=== PATIENT | female | born 1990 | race Caucasian/White ===

== ENCOUNTER 2020-03-22 10:55 | Outpatient (CLI) | payer BC, OTHER ==
[2020-03-23 15:22] LABS: SARS-CoV-2 MS2 Positive; SARS-CoV-2 N Gene Negative; SARS-CoV-2 S Gene Negative; SARS-CoV-2 by NAA Not Detected (NotDetected); SARS-CoV-2 orf1ab Negative
== END 2020-03-22 10:56 | disposition home or self-care (01) ==
LOC: LABBT 10:55
PROVIDERS: ATTEND Obstetrics & Gynecology
DX: Z20.828 Contact with and (suspected) exposure to other viral communicable diseases (principal)
CPT/HCPCS: 87635; U0003

== ENCOUNTER 2020-03-25 05:34 | Inpatient (IN) | payer BC, OTHER ==
[2020-03-25] MEDS ORDERED: Promethazine HCl 25 MG/ML VIAL IM PRN ×2 (05:38→08:32)
[2020-03-25] MEDS ORDERED: hydrALAZINE 20 MG/ML VIAL SLOW IVP PRN ×2 (05:38→08:36)
[2020-03-25] MEDS ORDERED: Lactated Ringer's 1,000 ML IV SCH (05:38)
[2020-03-25] MEDS ORDERED: Bicitra 30 ML UDCUP PO SCH (05:38)
[2020-03-25] MEDS ORDERED: Ondansetron PF 4 MG/2 ML Vial IVP PRN ×3 (05:38→08:36)
[2020-03-25] MEDS ORDERED: CEFAZOLIN 2 GM in Premix Bag 1 BAG IVPB SCH (05:38)
[2020-03-25 06:05] VITALS: BMI 32.8
[2020-03-25 06:25] LABS: Hemoglobin 13.8 g/dL (12.0-16.0); Mean Corpuscular HGB CONC 34.1 g/dL (32.0-36.0); Mean Corpuscular Volume 93.7 fL (78.0-98.0); Mean Platelet Volume 9.6 fL (7.4-10.4); Platelet Count 121 thou/uL (130-400); RBC Distribution Width 12.4 % (11.5-14.5); Red Blood Cell (RBC) Count 4.32 mill/uL (4.20-5.40); White Blood Cell (WBC) Count 8.4 thou/uL (4.8-10.8)
[2020-03-25 07:05] LABS: HBSAg Index 0.16 S/CO (0-0.99); Hep B Surf Ag Non-Reactive S/CO (NonReactive)
[2020-03-25 07:06] LABS: Syphilis Antibody Nonreactive (Nonreactive); Syphilis Antibody Index 0.03 S/CO (<1.00 Non-Reactive)
[2020-03-25] MEDS ORDERED: Ketorolac Tromethamine 30 MG/ML VIAL ONE (07:12)
[2020-03-25] MEDS ORDERED: Ondansetron PF 4 MG/2 ML Vial ONE (07:12)
[2020-03-25] MEDS ORDERED: PHENYLEPHRINE-NS 100 MCG/ML 10 ML SYRINGE ONE (07:12)
[2020-03-25] MEDS ORDERED: Oxytocin 10 UNITS/ML VIAL ONE ×2 (07:12→08:50)
[2020-03-25] MEDS ORDERED: ePHEDrine 50 MG/ML VIAL ONE (07:12)
[2020-03-25] MEDS ORDERED: Naloxone HCl 0.4 mg/ml Vial IVP PRN ×2 (08:32)
[2020-03-25] MEDS ORDERED: Promethazine HCl 25 MG SUPP PR PRN (08:32)
[2020-03-25] MEDS ORDERED: Meperidine HCl/PF 25 MG/ML VIAL SLOW IVP PRN (08:32)
[2020-03-25] MEDS ORDERED: Naloxone HCl 0.4 mg/ml Vial IV PRN (08:32)
[2020-03-25] MEDS ORDERED: diphenhydrAMINE 50 MG/ML VIAL IVP PRN (08:32)
[2020-03-25] MEDS ORDERED: Ondansetron HCl/PF 4 MG/2 ML Vial IVP PRN (08:32)
[2020-03-25] MEDS ORDERED: Ketorolac Tromethamine 30 MG/ML VIAL IVP PRN (08:32)
[2020-03-25] MEDS ORDERED: Bisacodyl 10 MG SUPP PR PRN (08:36)
[2020-03-25] MEDS ORDERED: Acetaminophen 325 MG TAB PO PRN (08:36)
[2020-03-25] MEDS ORDERED: Misoprostol 200 MCG TAB PR PRN (08:36)
[2020-03-25] MEDS ORDERED: diphenhydrAMINE 25 MG CAP PO PRN (08:36)
[2020-03-25] MEDS ORDERED: Meperidine HCl/PF 25 MG/ML VIAL IM PRN (08:36)
[2020-03-25] MEDS ORDERED: Zolpidem Tartrate 5 MG TAB PO PRN (08:36)
[2020-03-25] MEDS ORDERED: Lanolin Ointment 7 GM TUBE TOP PRN (08:36)
[2020-03-25] MEDS ORDERED: Adacel (T-DAP) 0.5 ML SYRINGE IM ONE (08:36)
[2020-03-25] MEDS ORDERED: Communication Order-Pharmacy FS SCH (08:45)
[2020-03-25] MEDS ORDERED: NS / Oxytocin 40 units/1000ml 1,000 ML IV SCH (08:45)
[2020-03-25] MEDS ORDERED: Ketorolac Tromethamine 30 MG/ML VIAL IVP SCH (08:45)
--- NOTE | 2020-03-25 10:20 | OP ---
DATE OF PROCEDURE: 03/25/2020 Surgeon: Tasha Murphy MD RESIDENT SURGEON: Brody PREOPERATIVE DIAGNOSES: 1. Term intrauterine at 39 and 4/7th weeks. 2. Prior section. 3. Declines trial of labor. POSTOPERATIVE DIAGNOSES: 1. Term intrauterine at 39 and 4/7th weeks. 2. Prior section. 3. Declines trial of labor. PROCEDURE PERFORMED: Repeat low-transverse section. ANESTHESIA: Spinal catheterization. FINDINGS: 1. Minimal scarring and adhesions. 2. Vigorous female , 6 pounds 7 ounces, Apgars 9 and 9. 3. Normal uterus, tubes, and ovaries. COMPLICATIONS: None. SPECIMENS REMOVED: Cord blood. ESTIMATED BLOOD LOSS: Approximately 500 mL. QBL 580 mL. DESCRIPTION OF PROCEDURE: After thorough consent and counseling, Mrs. Bee was taken to the operating room and an adequate level of anesthesia was obtained via spinal catheterization. The patient was prepped and draped in usual sterile fashion for abdominal surgery. A Quiroga was placed in the bladder, which was drained of clear urine. Team time-out was performed. Attention was then turned to performing the repeat low-transverse section. A Pfannenstiel incision was made through the old scar, which was carried sharply to the fascia. The fascia was sharply incised and the midline was identified. The rectus muscles were retracted laterally with usual safeguards carried out. The abdominal peritoneal cavity was entered in the midline. A retractor was placed and a bladder flap was created on the vesicouterine peritoneum. A bladder blade was then placed. A low-transverse incision was made on the well-developed lower uterine segment. Upon entering the amniotic sac, copious amount of clear amniotic fluid was visualized. The was noted to be vertex presentation in the occiput and anterior position still high in the pelvis. Head was delivered and the baby was bulb suctioned on the abdomen. Shoulders and body were then delivered in an atraumatic fashion. The cord was doubly clamped and cut. The infant was handed to the Pediatric Team in attendance for delivery. The was a vigorous viable female weighing 6 pounds 7 ounces with Apgars of 9 and 9 obtained at one and five minutes respectively. Cord blood was obtained. The placenta was manually removed from the uterus. The uterus was exteriorized and good tone was noted. The uterine cavity was cleared of any remaining clot and fluid. The low-transverse incision was then closed with a running locking ligature of #1 chromic. The bladder flap was created. Fluid was reapproximated to the lower uterus segment with running ligature of 2-0 Monocryl. Good tone and hemostasis were appreciated. The posterior cul-de-sac and gutters were cleared of clot and fluid. Seprafilm was applied to the low-transverse incision and the anterior aspect of the uterus for adhesion prevention. The uterus was returned to the abdomen and good tone and hemostasis was again noted. Lap, sponge, and needle counts were correct. The peritoneum was then closed with a running ligature of 2-0 Vicryl suture. The rectus muscles were reapproximated in the midline with interrupted ligatures of 2-0 Vicryl suture. The fascia was then closed with 2 ligatures of 0 Vicryl suture, which were tied in the midline. Good fascial integrity was noted. The incision was then irrigated with copious amount of warm normal saline. Hemostasis was obtained with Bovie cauterization. The subcutaneous tissue was then closed with interrupted ligatures of 2-0 plain suture. The skin was closed with a subcuticular stitch of 4-0 Monocryl and dressed with Dermabond. A pressure dressing and ice packs were subsequently placed. Lap, sponge, and needle counts were correct x3. Estimated blood loss during the surgical procedure was approximately 500 mL (QBL equal 580 mL). Team debriefing was performed. The patient was taken to the recovery room in good condition. Immediately following the surgery, the patient and family were made aware of the surgical procedure and operative findings. Questions were answered to their satisfaction. Mother and baby were doing well postoperatively. Baby was returned to mom in the recovery room shortly for [id number] contact and . Job ID: [id number] [facility]
[2020-03-25] MEDS: Docusate Calcium (SURFAK) 240 MG CAP PO SCH ×2 (11:33→21:12)
[2020-03-25] MEDS: Ferrous Sulfate 325 MG TAB PO SCH ×2 (11:34→21:57)
[2020-03-25] MEDS: Prenatal Vitamin 1 TAB PO SCH (11:34)
[2020-03-25] MEDS: Ibuprofen 800 MG TAB PO SCH ×2 (14:59→21:12)
[2020-03-26] MEDS: Ibuprofen 800 MG TAB PO SCH ×3 (05:02→22:15)
[2020-03-26 06:41] LABS: Hemoglobin 11.8 g/dL (12.0-16.0); Mean Corpuscular Hemoglobin 32.2 pg (27.0-31.0); Mean Corpuscular Volume 94.6 fL (78.0-98.0); Mean Platelet Volume 9.5 fL (7.4-10.4); Platelet Count 113 thou/uL (130-400); RBC Distribution Width 12.8 % (11.5-14.5); Red Blood Cell (RBC) Count 3.68 mill/uL (4.20-5.40); White Blood Cell (WBC) Count 9.6 thou/uL (4.8-10.8)
[2020-03-26] MEDS: Ferrous Sulfate 325 MG TAB PO SCH ×2 (08:20→22:54)
[2020-03-26] MEDS: Simethicone Chewable 80 MG TAB PO PRN ×2 (09:46→14:47)
[2020-03-26] MEDS: Docusate Calcium (SURFAK) 240 MG CAP PO SCH ×2 (09:47→22:15)
[2020-03-26] MEDS: Prenatal Vitamin 1 TAB PO SCH (09:48)
[2020-03-26] MEDS: traMADol HCl 50 MG TAB PO PRN ×2 (11:35→23:24)
[2020-03-27] MEDS: Ibuprofen 800 MG TAB PO SCH ×3 (05:35→22:01)
[2020-03-27] MEDS: Prenatal Vitamin 1 TAB PO SCH (08:57)
[2020-03-27] MEDS: Docusate Calcium (SURFAK) 240 MG CAP PO SCH ×2 (08:57→22:01)
[2020-03-27] MEDS: traMADol HCl 50 MG TAB PO PRN ×2 (08:59→15:09)
[2020-03-27] MEDS: Ferrous Sulfate 325 MG TAB PO SCH ×2 (10:47→23:42)
[2020-03-27] MEDS ORDERED: traMADol HCl 50 MG TAB PO PRN (15:36)
[2020-03-28] MEDS: Ibuprofen 800 MG TAB PO SCH (06:03)
[2020-03-28 08:05] VITALS: BP 104/65; TEMP 98.1
[2020-03-28] MEDS: Prenatal Vitamin 1 TAB PO SCH (08:40)
[2020-03-28] MEDS: Docusate Calcium (SURFAK) 240 MG CAP PO SCH (08:41)
[2020-03-28] MEDS: Ferrous Sulfate 325 MG TAB PO SCH (10:08)
== END 2020-03-28 10:56 | disposition home or self-care (01) | DRG 788 ==
LOC: L&D 05:34 → 3SW 11:04
PROVIDERS: ADMIT Obstetrics & Gynecology; ATTEND Obstetrics & Gynecology
PROC: 10D00Z1 Extraction of Products of Conception, Low, Open Approach (ICD-10-PCS; principal; 2020-03-25)
DX: O34.219 Maternal care for unspecified type scar from previous cesarean delivery (principal); Z3A.39 39 weeks gestation of pregnancy; Z37.0 Single live birth; Z88.2 Allergy status to sulfonamides; Z88.6 Allergy status to analgesic agent
CPT/HCPCS: 36415; 51702; 85027; 86780; 86850; 86900; 86901; 87340; 87635; J0690; J1885; J2270; J2405; J3490; U0003